=== PATIENT | female | born 1975 | race Caucasian/White ===

== ENCOUNTER 2017-01-12 06:40 | Day surgery (SDC) | payer BC ==
[~2017-01-12] VITALS: Ht 167.6 cm; Wt 119.4 kg
[2017-06-01] MEDS ORDERED: CIPRO500 MG PO (16:57)
== END 2017-01-12 11:05 | disposition short-term general hospital (02) ==
LOC: SURGOP 06:40
PROC: 0SBD4ZZ Excision of Left Knee Joint, Percutaneous Endoscopic Approach (ICD-10-PCS; principal; 2017-01-12)
DX: S83.242D Other tear of medial meniscus, current injury, left knee, subsequent encounter (principal); M94.262 Chondromalacia, left knee; E66.9 Obesity, unspecified; Z68.41 Body mass index [BMI] 40.0-44.9, adult; Z88.8 Allergy status to other drugs, medicaments and biological substances; Z90.49 Acquired absence of other specified parts of digestive tract
CPT/HCPCS: J0690; J1100; J2250; J2270; J2405; J3010

== ENCOUNTER → 2017-01-26 | Outpatient (CLI) | payer BC ==
[~2017-01-26] MED LIST: CIPRO500 MG PO
== END | disposition short-term general hospital (02) ==
LOC: CLORTH 01-12 16:25
DX: Z47.89 Encounter for other orthopedic aftercare (principal)

== ENCOUNTER → 2017-02-23 | Outpatient (CLI) | payer BC | END | disposition short-term general hospital (02) | LOC: CLORTH 05:06 | DX: S83.242D Other tear of medial meniscus, current injury, left knee, subsequent encounter (principal) ==